=== PATIENT | female | born 1950 | race Caucasian/White ===

== ENCOUNTER 2022-05-07 17:52 | Emergency (ER) | payer OTHER, SELFPAY ==
[2022-05-07 18:16] VITALS: BP 178/77; PULSE 66; RESP 18; TEMP 36.3; O2SAT 95; BMI 26.3
--- NOTE | 2022-05-07 18:33 | ED.GENADULT ---
HPI - General Adult General Time Seen by Provider: 18:34 Date Seen: 05/07/22 Chief complaint: Chest Pain Stated complaint: Chest Pain Time Seen by Provider: 05/07/22 17:57 Source: patient and RN notes reviewed Mode of arrival: ambulatory Limitations: no limitations History of Present Illness HPI narrative: Patient is a 72-year-old female coming into the ER with concern of chest discomfort. Last night about 6:00 a.m. she was just moving about the house and developed severe substernal chest discomfort that radiated throughout the chest. She did not notice any palpitations, irregular heartbeat, no change with breathing. She can not really say that anything made it worse or better. She had eaten about an hour prior to this. There is no heartburn or reflux with it. It continued throughout the evening. She was able to fall asleep. This morning when she awoke she was left with just a little left lower chest discomfort. It does hurt to press on her left lower chest wall. On questioning of any radiation into the arm, she does endorse having had left arm pain this past week. She states it would hurt to lift her arm at all. It is better now. She has 2 [id number] twin grandchildren and just wonders if she was lifting them too much. Pain is not associated with her current symptoms in this left arm. No abdominal symptomatology such as nausea vomiting. She has had no current cough or cold symptoms, no fevers or chills. Baseline she takes 2 Tylenol twice a day for arthritis. She does use Symbicort for what she describes as a little piece of phlegm that will get caught in her throat if she does not use it. She states then should this start coughing and coughing. She states she had an episode where this was happening she was coughing so much that she went into the ER and they told her she had had a heart attack. This was when she was still living in [facility] [place] operated by [facility] and since then she has lived in [place]. She has moved here now to [place] with family. Further details or events not known. Activity has not increased her chest symptoms. She is really found nothing that has made the symptoms worse or better. Yesterday the pain was much more significant than it is today. She has never smoked but was exposed to secondhand smoke from her . No alcohol. Related Data Home Medications Medication Instructions Recorded Confirmed acetaminophen 325 mg tablet 650 mg PO BID PRN 05/07/22 05/07/22 alendronate 70 mg tablet mg PO 05/07/22 aspirin 81 mg chewable tablet 81 mg PO DAILY 05/07/22 05/07/22 atorvastatin 40 mg tablet 40 mg PO QHS 05/07/22 05/07/22 betamethasone dipropionate 0.05 % 1 applic topical DAILY PRN 05/07/22 05/07/22 lotion budesonide-formoterol HFA 160 inhalation 05/07/22 mcg-4.5 mcg/actuation aerosol inhaler (Symbicort) fluticasone propionate 50 1 spray intranasal DAILY PRN 05/07/22 05/07/22 mcg/actuation nasal spray,suspension (Flonase Allergy Relief) hydrocortisone 2.5 % rectal cream 1 ea SC PRN 05/07/22 with applicator levothyroxine 75 mcg tablet 75 mcg PO DAILY 05/07/22 05/07/22 losartan 25 mg tablet 25 mg PO DAILY 05/07/22 05/07/22 magnesium 500 mg tablet 500 mg PO DAILY 05/07/22 05/07/22 pantoprazole 40 mg tablet,delayed 40 mg PO DAILY 05/07/22 05/07/22 release sertraline 100 mg tablet 100 mg PO DAILY 05/07/22 05/07/22 Allergies Allergy/AdvReac Type Severity Reaction Status Date / Time No Known Drug Allergies Allergy Verified 05/07/22 18:12 Review of Systems Status of ROS: Reports: 10 or more systems reviewed and unremarkable except as noted in History and below PFSH PFS Social History Smoking Status: Unknown if ever smoked How often do you have a drink containing alcohol: monthly or less How often do you have six or more drinks on one occasion: Never AUDIT-C Alcohol total score: 1 Non-prescribed substance use: denies use Exam Const: Vital Signs, click to edit/add: Vital Signs - 24 hr 05/07/22 18:16 05/07/22 18:43 05/07/22 18:58 Temperature 97.4 F L Pulse Rate [Right Pulse Oximeter] 66 82 Respiratory Rate 18 17 Blood Pressure [Ri ght Upper Arm] 178/77 H 143/65 H Pulse Oximetry 95 96 96 Oxygen Delivery Me thod Room Air Documenting provider has reviewed patient's vital signs: yes Common normals: no apparent distress, average body habitus, oriented x3, no limitations, healthy appearing, alert and well nourished General appearance: cooperative, comfortable and well kempt HENMT: Common normals: normocephalic, head/scalp atraumatic, hearing grossly normal bilaterally, external ears normal, external nose normal, nasal mucous membranes and turbinates normal, moist oral mucous membranes, oropharynx normal, dentition normal and gingiva normal Head and scalp: normocephalic and atraumatic Nose: external nose normal and nasal mucous membranes and turbinates normal External ear: external ears normal Eye: Common normals: PERRL, EOMs intact bilaterally, conjunctivae normal and no scleral icterus Conjunctiva: conjunctiva(e) normal Pupil: PERRL Neck & C-Spine: Common normals: full ROM, no lymphadenopathy, supple, no meningeal signs, no JVD and thyroid normal Thyroid: thyroid normal Chest: Common normals: inspection of chest normal Other: Has palpable tenderness below the left breast over the anterolateral lower chest wall. There is no crepitus, no step-off. She has increased pain in the area when I palpate when she is attempting to sit up. This pain does not extend down into the abdominal muscles however. Resp: Common normals: normal respiratory effort, no retractions, no use of accessory muscles and clear to auscultation bilaterally Auscultation: clear to auscultation bilaterally Cardio: Common normals: no JVD, regular rate, regular rhythm, S1 normal heart sound, S2 normal heart sound, no gallops, no clicks, no murmurs and no rub Rate: regular rate Rhythm: regular rhythm Heart sounds: S1 normal and S2 normal GI: Common normals: Normal to inspection, nondistended, normoactive bowel sounds present, soft to palpation, non-tender, no hepatosplenomegaly and no masses Palpation: soft and no hepatosplenomegaly Extremity: Common normals: normal to inspection, full ROM, normal capillary refill, no joint enlargement, no clubbing, cyanosis or edema and no pedal edema Neuro: Common normals: oriented x3 Sensorium/orientation: alert Meningeal signs: no meningeal signs Speech: speech normal Gait (neuro): normal gait Psych: Appearance: well kempt Course Course Hospital Course: Patient will be observed on cardiac monitoring and pulse oximetry toe look for any hypoxia or arrhythmia. She will be getting labs, portable chest x-ray and baseline EKG. She certainly has palpable chest wall tenderness which would go with musculoskeletal issues. This certainly could be GI referred, cardiovascular such as [place], dissection/aneurysm, consideration for pulmonary etiologies as well but not as likely given her history. We will do point of care troponin. If that should come back elevated we will proceed with cardiac treatment. Will withhold aspirin at this time is I think other etiologies are just is likely or more likely rather than cardiac. The point of care troponin should not take long to obtain and again patient has had chest symptoms since last night. Vital Signs Vital signs: Initial Vital Signs Temperature 97.4 F L 05/07/22 18:16 Temperature Source Temporal Artery Scan 05/07/22 18:16 Pulse Rate 66 05/07/22 18:16 Respiratory Rate 18 05/07/22 18:16 Blood Pressure 178/77 H 05/07/22 18:16 Blood Pressure Mean 110 05/07/22 18:16 Blood Pressure Position Sitting 05/07/22 18:16 Pulse Oximetry 95 05/07/22 18:16 Oxygen Delivery Method 05/07/22 18:16 Vital Signs Temperature 97.4 F L 05/07/22 18:16 Pulse Rate 66 05/07/22 18:16 Respiratory Rate 18 05/07/22 18:16 Blood Pressure 178/77 H 05/07/22 18:16 Pulse Oximetry 95 05/07/22 18:16 Oxygen Delivery Method 05/07/22 18:16 Temperature 97.4 F L 05/07/22 18:16 Pulse Rate 82 05/07/22 18:58 Respiratory Rate 17 05/07/22 18:58 Blood Pressure 143/65 H 05/07/22 18:58 Pulse Oximetry 96 05/07/22 18:58 Oxygen Delivery Method 05/07/22 18:16 Medical Decision Making Lab Data Lab results reviewed: Yes I reviewed the patient's lab results Lab results narrative: Troponin and proBNP are normal. D-dimer is at 0.56 but well within the age limits for D-dimer. Patient is not hypoxic, not tachycardic and no shortness of breath. Have reviewed laboratory findings with her, nothing overtly concerning at this time. Labs: Lab Results 05/07/22 05/07/2222 Range/Units 19:03 19:03 19:03 WBC 7.93 (4.50-11.00) K/uL RBC 4.14 (4.00-5.20) m/uL Hgb 11.8 L (12.0-16.0) gm/dL Hct 36.3 (33.0-51.0) % MCV 88 (80-100) fL MCH 29 (26-34) pg MCHC 33 (32-36) gm/dL RDW Coeff of Jamison 13.6 (11.5-15.5) % Plt Count 288 (140-440) K/uL Neut % (Auto) 56.3 (42.0-72.0) % Lymph % (Auto) 32.5 (20-44) % Elliott % (Auto) 8.2 (0.0-11.0) % Eos % (Auto) 2.5 (0.0-7.0) % Baso % (Auto) 0.5 (0.0-3.0) % Neut # (Auto) 4.46 (1.7-7.0) K/uL Lymph # (Auto) 2.58 (0.90-2.90) K/uL Elliott # (Auto) 0.70 (0.00-0.90) K/UL Eos # (Auto) 0.20 (0.00-0.50) K/uL Baso # (Auto) 0.04 (0.00-0.30) K/uL Abs Immat Gran (auto) 0.00 (0.00-0.30) K/uL D-Dimer Quant (PE/DVT) 0.56 H (0.00-0.50) ug/ml Sodium 137 (135-149) mmol/L Potassium 3.8 (3.6-5.1) mmol/L Chloride 104 (96-114) mmol/L Carbon Dioxide 26 (20-32) mmol/L BUN 11 (7-30) mg/dL Creatinine 0.5 (0.5-1.5) mg/dL Estimated Creat Clear 48.03 Estimated GFR 100 ml/min Glucose 133 H (60-115) mg/dL Lactate (0.5-1.9) mmol/L Calcium 9.6 (8.4-10.6) mg/dL Total Bilirubin 0.3 (0.1-1.5) mg/dL AST 31 (12-35) U/L ALT 25 (4-35) U/L Alkaline Phosphatase 61 (40-150) U/L C-Reactive Protein < 0.5 L (0.5-1.0) mg/dL NT-Pro-B Natriuret Pep 88 (0-125) PG/mL Total Protein 6.9 (6.0-8.3) g/dL Albumin 4.3 (3.3-5.0) g/dL POC Troponin I (0.01-0.04) ng/ml 05/07/22 05/07/22 Range/Units 19:03 19:03 WBC (4.50-11.00) K/uL RBC (4.00-5.20) m/uL Hgb (12.0-16.0) gm/dL Hct (33.0-51.0) % MCV (80-100) fL MCH (26-34) pg MCHC (32-36) gm/dL RDW Coeff of Jamison (11.5-15.5) % Plt Count (140-440) K/uL Neut % (Auto) (42.0-72.0) % Lymph % (Auto) (20-44) % Elliott % (Auto) (0.0-11.0) % Eos % (Auto) (0.0-7.0) % Baso % (Auto) (0.0-3.0) % Neut # (Auto) (1.7-7.0) K/uL Lymph # (Auto) (0.90-2.90) K/uL Elliott # (Auto) (0.00-0.90) K/UL Eos # (Auto) (0.00-0.50) K/uL Baso # (Auto) (0.00-0.30) K/uL Abs Immat Gran (auto) (0.00-0.30) K/uL D-Dimer Quant (PE/DVT) (0.00-0.50) ug/ml Sodium (135-149) mmol/L Potassium (3.6-5.1) mmol/L Chloride (96-114) mmol/L Carbon Dioxide (20-32) mmol/L BUN (7-30) mg/dL Creatinine (0.5-1.5) mg/dL Estimated Creat Clear Estimated GFR ml/min Glucose (60-115) mg/dL Lactate 1.0 (0.5-1.9) mmol/L Calcium (8.4-10.6) mg/dL Total Bilirubin (0.1-1.5) mg/dL AST (12-35) U/L ALT (4-35) U/L Alkaline Phosphatase (40-150) U/L C-Reactive Protein (0.5-1.0) mg/dL NT-Pro-B Natriuret Pep (0-125) PG/mL Total Protein (6.0-8.3) g/dL Albumin (3.3-5.0) g/dL POC Troponin I 0.01 (0.01-0.04) ng/ml Imaging Data Chest x-ray: Attestation: I have reviewed the pertinent imaging results. My impression: On my preliminary read, I see no acute cardiopulmonary pathology. Radiologist's impression: Patient: HERNANDEZ TOWNSEND Facility:?[facility] Patient ID:?[id number] Site Patient ID:?[id number]. Site :?[id number] Study:?XRay Chest -05/07/2022 6:55:03 PM Ordering Physician:Mackenzie Marley Final Report: HISTORY: Left-sided chest pain. TECHNIQUE: One view of the chest. COMPARISON: No prior. FINDINGS: There is no acute lung infiltrate or pulmonary edema. No pneumothorax or pleural effusion. Heart size and pulmonary vasculature are within normal limits. There are degenerative changes of the spine. IMPRESSION: No acute disease. Dictated by Sandeep Decker MD @ 05/07/2022 7:10:34 PM Dictated by: Sandeep Decker MD @ 05/07/2022 19:10:39 (Electronic Signature) ECG Data Attestation: I personally reviewed and interpreted this ECG as follows: (Sinus rhythm, 71 beats per minute, normal EKG without ischemia. QT corrected 415 milliseconds) Prior ECG tracings: not available for review Critical Care Time Critical Care Time Critical Care Time: No Discharge Plan Discharge Clinical Impression: Left-sided chest wall pain Patient Disposition: Home, Self-Care Condition: Stable Instructions: Chest Pain (ED), Chest Wall Pain (ED) Additional Instructions: Please keep your scheduled follow-up for next week that you state is scheduled. You can try an extra dose of Tylenol during the middle the day to help with pain management. If you developed fever, cough, increased seen chest pain, new or concerning symptoms with this, please seek re-evaluation. Activity Level: Activity as Tolerated Prescriptions: No Action alendronate 70 mg tablet PO budesonide-formoterol [Symbicort] 160-4.5 mcg/actuation HFA aerosol inhaler INHALATION acetaminophen 325 mg tablet 650 mg PO BID PRN aspirin 81 mg tablet,chewable 81 mg PO DAILY atorvastatin 40 mg tablet 40 mg PO QHS betamethasone dipropionate 0.05 % lotion 1 applic topical DAILY PRN fluticasone propionate [Flonase Allergy Relief] 50 mcg/actuation spray,suspension 1 spray intranasal DAILY PRN Rx Instructions: administer into each nostril hydrocortisone 2.5 % cream with applicator 1 ea SC PRN levothyroxine 75 mcg tablet 75 mcg PO DAILY losartan 25 mg tablet 25 mg PO DAILY magnesium 500 mg tablet 500 mg PO DAILY pantoprazole 40 mg tablet,delayed release (DR/EC) 40 mg PO DAILY sertraline 100 mg tablet 100 mg PO DAILY Follow Up/Referrals: Provider,Not a Local [Primary Care Provider] - Stand Alone Forms: varinode Info Instructions
[2022-05-07 18:43] VITALS: O2SAT 96
--- NOTE | 2022-05-07 18:43 | CRLHL7_ITS ---
For Patients: As a result of the Cures Act, medical imaging exams and procedure reports are released immediately into your electronic medical record. You may view this report before your referring provider. If you have questions, please contact your health care provider. HISTORY: Left-sided chest pain. TECHNIQUE: One view of the chest. COMPARISON: No prior. FINDINGS: There is no acute lung infiltrate or pulmonary edema. No pneumothorax or pleural effusion. Heart size and pulmonary vasculature are within normal limits. There are degenerative changes of the spine. IMPRESSION: No acute disease. Dictated by Sandeep Decker MD @ 05/07/2022 7:10:34 PM Dictated by: Sandeep Decker MD @ 05/07/2022 19:10:39 (Electronically Signed)
[2022-05-07 18:58] VITALS: BP 143/65; PULSE 82; RESP 17; O2SAT 96
--- OUTSIDE RECORDS SUMMARY | 2022-05-07 18:59 | XMS_ITS | Clinical Summary ---
:1950 Author Organization [employer] [place] [address] Care Team Providers Name Role Phone Yocasta Reynolds MD Primary Care Provider Allergies No known active allergies Medications Medication Sig Dispensed Refills Start End Date Status Date alendronate Take 1 Tablet 0 Acti ve (FOSAMAX) 70 mg (70 mg) by 2 tablet mouth once a week in the morning. Take on empty stomach with full glass of water. Do not lie down for 1 hr. betamethasone,augmen Apply 0 Active igor dipropionate topically to 0.05% (DIPROLENE affected LOTION 0.05%) lotion area(s). atorvastatin Take 40 mg by 0 Act minna (LIPITOR) 40 mg mouth once 2 tablet daily. aspirin (ECOTRIN) 81 Take 81 mg by 0 Active mg enteric coated mouth once tablet daily. acetaminophen Take by 0 Active (TYLENOL EXTRA mouth. STRGTH) 500 mg tablet sertraline (ZOLOFT) Take 1 Tablet 0 Active 100 mg (100 mg) by 2 tabletIndications: mouth every Depression, morning. unspecified depression type, Anxiety Turmeric, Bulk, 95 % As directed. 0 Active powd 2 Magnesium Oxide 500 Take by 0 Active mg tab mouth. 2 losartan (COZAAR) 25 Take 1 Tablet 0 Active mg (25 mg) by 2 tabletIndications: mouth once Primary hypertension daily. levothyroxine Take 1 Tablet 0 Ac tive (SYNTHROID) 75 mcg (75 mcg) by 2 tabletIndications: mouth before Acquired breakfast. hypothyroidism hydrocortisone Apply 0 Activ e (ANUSOL-HC) 2.5 % topically to 2 rectal affected creamIndications: area(s) three Hemorrhoids, times daily. external fluticasone (50 mcg Inhale 2 16 g 0 Active per actuation) nasal Sprays to 2 solution both nostrils (FLONASE)Indications once daily. : Environmental allergies budesonide-formotero Inhale 2 30.6 g 0 Active L (Symbicort) Puffs by 2 160-4.5 mouth two mcg/actuation times daily. (160-4.5 mcg each actuation) inhalerIndications: Mild intermittent asthma without complication pantoprazole Take 1 Tablet 180 Tablet 3 Ac tive (PROTONIX) 40 mg (40 mg) by 2 delayed-release mouth two tabletIndications: times daily Gastroesophageal before meals. reflux disease, unspecified whether esophagitis present budesonide-formotero INHALE 2 0 04/21/20 Discontinued L (Symbicort) PUFFS BY 1 22 (Reord er 160-4.5 MOUTH TWICE (E-cance l not mcg/actuation DAILY. RINSE sen t)) (160-4.5 mcg each MOUTH AFTER actuation) inhaler USE budesonide-formotero Inhale 2 10.2 g 3 04/27/20 Discontinued L (Symbicort) Puffs by 2 22 (Reord er 160-4.5 mouth two (E-cancel not mcg/actuation times daily. sen t)) (160-4.5 mcg each actuation) inhalerIndications: Mild intermittent asthma without complication pantoprazole Take 1 Tablet 0 05/06/20 Dis continued (PROTONIX) 40 mg (40 mg) by 2 22 (R eorder delayed-release mouth two (E-c ancel not tabletIndications: times daily sent)) Gastroesophageal before meals. reflux disease, unspecified whether esophagitis present Active Problems Problem Noted Date Gastroesophageal reflux disease 06/02/2021 Anxiety 07/02/2019 Allergic rhinitis 06/25/2019 Constipation 06/21/2019 Acquired hypothyroidism 12/06/2018 Chronic obstructive pulmonary disease (COPD) 9 Overview: Formatting of this note might be differe nt from the original. Marked improvement with bronchodilators. Coughing spells have induced 2 episodes of takotsubo cardiomyopathy Age-related osteoporosis without current pathological fracture 09/18/2018 Mild persistent asthma without complication 09/12/2018 Mucopurulent chronic bronchitis 08/15/2018 Cardiomyopathy 08/07/2018 Overview: Formatting of this note might be differe nt from the original. Formatting of this note might be differe nt from the original. Two episodes 2015 and [facility] j[facility]. Second in [facility] 08/06/2018 normal coronaries EF 25%. Echo September 2018 returned to normal. Both episodes induced by severe coughing spell with h er chronic obstructive pulmonary disease no other cardiac symptoms. Last Assessment & Plan: Formatting of this note might be differe nt from the original. Patient manifests no symptoms. Diuretics are not necessary. LVEF is greater than 35%. We discussed symptoms to report to our office and a repeated echocardiogram would be done. Return visit with Primary [facility] in 2 years. Formatting of this note might be differe nt from the original. Two episodes takotsubo. Two episodes [address] [facility]. Second in [facility] 08/06/2018 normal coronaries EF 25%. Echo September 2018 returned to normal. Both episodes induced by sever e coughing spell with her chronic obstru ctive pulmonary disease no other cardiac symptoms. Last Assessment & Plan: Formatting of this note might be differe nt from the original. Depression 08/06/2018 Hyponatremia 08/06/2018 Primary hypertension 08/06/2018 Overview: Formatting of this note might be differe nt from the original. Last Assessment & Plan: Formatting of this note might be differe nt from the original. Target BP is 130/80. Blood pressure is a dequately controlled. Will plan to continue medical therapy. Encourage low sodium diet and exercise. Return visit with Primary [facility] in 2 years sooner if needed. . Last Assessment & Plan: Formatting of this note might be differe nt from the original. Target BP is 130/80. Blood pressure is a dequately controlled. Will plan to continue medical therapy. Encourage low sodium diet and exercise. Return visit with Primary [facility] in 2 years sooner if needed. . Encounters Date Type Specialty Care Team Description 05/07/2022 Nurse Triage Yocasta Reynolds MD Chest Pain 05/06/2022 Refill Yocasta Reynolds MD Refil l Request (Pantoprazole 40mg tablet, de layed release ) 04/28/2022 Refill Yocasta Reynolds MD Refil l Request (Symbicort) 04/27/2022 Refill Yocasta Reynolds MD Refil l Request (symbicort) 04/21/2022 Office Visit Yocasta Reynolds MD [facility] (72 y.o.); Immunization/In jection 04/21/2022 Travel from Last 3 Months Immunizations Name Administration Dates Next Due Influenza, High-dose Inactivated 07/18/2019, 07/17/2018 Influenza, Inactivated AIIV4 (Age 65+ Years) Preserv 022 Free Social History Tobacco Use Types Packs/Day Years Used Date Never Smoker Smokeless Tobacco: Never Used Alcohol Use Standard Drinks/Week Comments Not Currently 0 (1 standard drink = 0.6 oz pure alcoho l) Sex Assigned at Date Recorded Not on file COVID-19 Exposure Response Date Recorded In the last 10 days, have you been in contact with No / Unsu re 04/21/2022 10:44 AM CDT someone who was confirmed or suspected to have Coronavirus/COVID-19? Obstetrics History Last Filed Vital Signs Vital Sign Reading Time Taken Comments Blood Pressure 140/84 04/21/2022 12:16 PM CDT Pulse 68 04/21/2022 12:16 PM CDT Temperature 36.7 ??C (98.1 ??F) 04/21/2022 11:00 AM CDT Respiratory Rate - - Oxygen Saturation 97% 04/21/2022 11:00 AM CDT Inhaled Oxygen Concentration - - Weight 60 kg (132 lb 3.2 oz) 04/21/2022 11:00 AM CDT Height 148 cm (4' 10.27) 04/21/2022 11:00 AM CDT Body Mass Index 27.38 04/21/2022 11:00 AM CDT Plan of Treatment Upcoming Encounters Date Type Specialty Care Team Description 05/21/2022 Office Visit Yocasta Reynolds MD [facility] [place] 5 [id number] (Wo rk) 05/25/2022 [place] [address] [address] [facility] [phone] (Wo rk) Health Maintenance Due Date Last Done Comments COVID-19 vaccine series (#1) 1950 Pneumococcal series for age 65+ (1 - 1957 PCV) Tdap 1962 Depression screening for age 12+ 1963 Hepatitis C screening for age 18-79 1969 Tetanus booster 1971 Colonoscopy through age 75 02/29/1996 Lipids for age 45-75 02/29/1996 Mammogram for age 45-75 02/29/1996 Zoster (shingles) series for age 50+ 2001 (1 of 2) DEXA/DXA scan for age 65+ 02/29/2016 Medicare Wellness for age 65+ 02/29/2016 BMI (ht and wt on same day) for age 0904/21/2023 04/21/2022 18+ Influenza for age 65+ Completed 04/21/2022, 07/18/2019, 07/17/2018 Results Not on filefrom Last 3 Months Insurance Payer Benefit Plan / Subscriber ID Effective Dates Phone Addre ss Type Group [employer] G[employer] MR [employer] CHOICE [id number] 2019-Present [address] [address] [place] [address] Care Teams Trip Follower Relationship Specialty Start Date End Date Yocasta Reynolds MD PCP - General Family Practice 04/20/[address] [place] [address]
[2022-05-07 19:00] VITALS: BP 143/65; PULSE 63; RESP 19; O2SAT 97
[2022-05-07 19:17] LABS: Basophils Absolute Auto 0.04 K/uL (0.00-0.30); Basophils Percent Auto 0.5 % (0.0-3.0); Eosinophils Percent Auto 2.5 % (0.0-7.0); Hematocrit 36.3 % (33.0-51.0); Hemoglobin* 11.8 gm/dL (12.0-16.0); Lymphocytes Absolute Auto 2.58 K/uL (0.90-2.90); Lymphocytes Percent Auto 32.5 % (20-44); Mean Corpuscular HGB Conc 33 gm/dL (32-36); Mean Corpuscular Hemoglobin 29 pg (26-34); Mean Corpuscular Volume 88 fL (80-100); Monocytes Percent Auto 8.2 % (0.0-11.0); Neutrophils Absolute Auto 4.46 K/uL (1.7-7.0); Neutrophils Percent Auto 56.3 % (42.0-72.0); Platelet Count* 288 K/uL (140-440); RDW Coefficient of Variation % 13.6 % (11.5-15.5); Red Blood Count 4.14 m/uL (4.00-5.20); Troponin, Point-of-Care* 0.01 ng/ml (0.01-0.04); White Blood Count* 7.93 K/uL (4.50-11.00)
[2022-05-07 19:22] LABS: Slide Review Reflex No
[2022-05-07 19:38] LABS: Albumin* 4.3 g/dL (3.3-5.0); Chloride* 104 mmol/L (96-114); Sodium* 137 mmol/L (135-149)
[2022-05-07 19:39] LABS: Potassium* 3.8 mmol/L (3.6-5.1)
[2022-05-07 19:41] LABS: Alanine Aminotransferase* 25 U/L (4-35); Alkaline Phosphatase* 61 U/L (40-150); Aspartate Amino Transferase* 31 U/L (12-35); Bilirubin Total* 0.3 mg/dL (0.1-1.5); Blood Urea Nitrogen* 11 mg/dL (7-30); Carbon Dioxide* 26 mmol/L (20-32); Creatinine* 0.5 mg/dL (0.5-1.5); Est. Creatinine Clearance* 48.03; Estimated Glomerular Filt Rate 100 ml/min; Glucose* 133 mg/dL (60-115); Total Protein* 6.9 g/dL (6.0-8.3)
[2022-05-07 19:42] LABS: Calcium* 9.6 mg/dL (8.4-10.6); D Dimer Quantitative* 0.56 ug/ml (0.00-0.50)
[2022-05-07 19:44] LABS: C Reactive Protein* < 0.5 mg/dL (0.5-1.0)
[2022-05-07 19:50] LABS: NT Pro B Type NatriureticPept* 88 PG/mL (0-125)
[2022-05-07 20:00] VITALS: BP 144/69; PULSE 59; RESP 13; O2SAT 95
== END 2022-05-07 20:24 | disposition home or self-care (01) ==
PROVIDERS: Emergency Provider Family Medicine
DX: R07.9 Chest pain, unspecified (principal)
CPT/HCPCS: 36415; 71045; 80053; 83605; 83880; 84484; 85025; 85379; 86140; 93005; 94761; 99284; 99285

== ENCOUNTER 2023-02-01 14:30 | Outpatient (RCR) | payer OTHER, SELFPAY ==
--- NOTE | 2022-12-14 11:29 | PT.OPEX ---
PT [place] [facility] Eval PT [facility] Out[facility] Eval Start: 12/14/22 09:47 Freq: Status: Active Protocol: Document 12/14/22 10:27 [facility] (Rec: 12/14/22 10:41 [facility] [id number]) E-signed By Marcus Casanova, PT Physical Therapy Outpatient Evaluation Insurance Information Insurance Name Medicare B Medical Diagnosis Unilateral primary OA of left knee M17.12 Presence of left artificial knee joint (after 12/27/22) Z96 .652 Treating Diagnosis Left knee pain M25.562 Impaired gait R26.[address] Siddhartha Arreola Subjective Subjective Pt. reports that she has left knee pain from OA. It limits her ambulation ability and any activities up on her feet. PLOF: walking for exercise outside on the trail around a [place] behind her home, 1/2 to 1 mile, without AD and painfree . She also has two three year old grandkids that she wants to be active with. Pt lives in the [id number] apt of her son and daughter in law's home . She will have to navigate 14 step (7 [id number] steps ) to get to her living level. PMH: depression, arthritis Pain Comments 12/15 left knee Date of Last Physician Visit 12/07/22 Date of Surgery (If applicable) 12/27/22 Current Work Status Retired Precautions Weight Bearing Status Weight Bear as Tolerated Therapy Limitations/Systems Review Not Limited Objective Other/Pertinent Objective Left knee ROM: WNL Strength: L LE: 5/5 except hip flexion 4/5 + Antalgic gait, moderate left limp + genu varus, left moreso than right Performs all transfers I Functional Test Performed & Score Ambulates short community distances (~500 ft) without AD , antalgic limp left Assessment Assessment/Impression 72 year old female with advanced OA left knee that is painful enough to be significantly limiting her daily activities and ambulation ability. Patient scheduled for L TKA 12/27/[address] Arreola. She was educated in the pre/post-op rehab process, fall prevention and HEP. Patient demo and verbalized good understanding of the information shared. She will benefit from skilled outpatient PT upon d/c from hospital. She has good family support and anticipates d/c home after surgery. Primary Functional Limitations ambulation, sit to stand tfr, stairs Plan of Care Rehabilitation Potential Excellent Rehabilitation Potential Comments generally active, in good health Physical Therapy Goals Pre-op goal: 1) Pt to demo I with pre-op HEP for left knee ROM/strength as well as what to expect from the post-op recovery process. GOAL MET Post-op goals, TBD Coordination/Communication With Referral Source Treatment Plan/Direct Interventions Gait Training,Manual Therapy, Neuromuscular Re-ed,Self-Care/ Home Management,Therapeutic Exercises Direct Interventions Clarification pre-op TKA program Comments Frequency/Duration one pre op visit. Anticipate 1-2x/week for 4-8 weeks post-op, per treating PT 's discretion. Patient Will Be Discharged From Therapy Completion of LTG(s), Independent w/HEP Evaluation Billing Untimed Code Treatment Minutes 20 Complexity Low Certification Information Initial Certification Date 12/14/22 Ending Certification Date 03/08/23 Provider Signature Shows Agreement With POC & Medical Necessity Physician Signature & Date Requested Please Sign/Date Here Physician Comment/Change : Physician NPI Number #
== END 2023-03-24 14:32 | disposition home or self-care (01) ==
PROVIDERS: Visit Provider Orthopaedic Surgery Sports Medicine
DX: M17.12 Unilateral primary osteoarthritis, left knee (principal); Z96.652 Presence of left artificial knee joint; M25.562 Pain in left knee; R26.2 Difficulty in walking, not elsewhere classified; Z51.89 Encounter for other specified aftercare
CPT/HCPCS: 97110; 97140; 97161; 97164; 97530

== ENCOUNTER 2023-06-02 09:45 | Outpatient (RCR) | payer OTHER, SELFPAY | END 2023-08-11 15:09 | disposition home or self-care (01) | PROVIDERS: PCP Family Medicine; Visit Provider Family Medicine | DX: M25.511 Pain in right shoulder (principal); M62.81 Muscle weakness (generalized); M79.601 Pain in right arm; Z51.89 Encounter for other specified aftercare | CPT/HCPCS: 97110; 97161; 97530 ==

== ENCOUNTER 2023-08-03 12:16 | Outpatient (CLI) | payer OTHER, SELFPAY | END 2023-08-03 12:17 | disposition home or self-care (01) | LOC: CT 12:17 | PROVIDERS: PCP Family Medicine; Visit Provider Orthopaedic Surgery Sports Medicine | DX: M19.011 Primary osteoarthritis, right shoulder (principal); Z01.818 Encounter for other preprocedural examination | CPT/HCPCS: 73200 ==

== ENCOUNTER 2023-09-07 06:08 | Day surgery (SDC) | payer OTHER, SELFPAY ==
[2023-09-07] VITALS (23 sets, daily range): BP systolic 104–140; BP diastolic 60–89; PULSE 53–82; RESP 12–22; TEMP 35.9–36.8; O2SAT 89–98; BMI 27.6
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
[2023-09-07] MEDS: LACTATED RINGERS 1000 ML 1,000 ML 100 ML IV ×2 (06:30→08:53)
[2023-09-07] MEDS: ACETAMINOPHEN 500 MG TABLET 1000 MG PO ×4 (06:40→22:42)
[2023-09-07] MEDS: OXYCODONE (CR) 10 MG TAB.ER.12H PO (06:40)
--- NOTE | 2023-09-07 07:01 | W.PM.H&PU ---
History & Physical Update History & Physical Update H&P Reviewed and patient assessed: No changes noted
--- NOTE | 2023-09-07 07:03 | CRLHL7_ITS ---
For Patients: As a result of the Cures Act, medical imaging exams and procedure reports are released immediately into your electronic medical record. You may view this report before your referring provider. If you have questions, please contact your health care provider. Indication: post op right reverse total shoulder arthroplasty Technique: Two views right shoulder Findings/Impression: Hardware from a right reverse total shoulder arthroplasty is in satisfactory position. Bone alignment is normal. No sign of acute fracture. Postop changes are within normal limits. Dictated by David Hogan MD @ 09/07/2023 9:59:19 AM (Electronically Signed)
[2023-09-07] MEDS: MIDAZOLAM HCL 1 MG/ML inj IVP (07:11)
[2023-09-07] MEDS: fentaNYL 100 MCG/2 ML inj IVP (07:11)
--- NOTE | 2023-09-07 07:13 | SUR.PREOP ---
TIME?OUT:?5910 PT/Mariangel Mills RN/Dr. Nando MDA?VERIFICATION?OF?SURGICAL?SITE right shoulder,?PROCEDURE,?AND?CONSENT OBTAINED?PRIOR?TO?INVASIVE?PROCEDURE.
[2023-09-07] MEDS: CEFAZOLIN 2 GM in 0.9 % SODIUM CHLORIDE Mini-bag 100 ML IVPB (07:40)
--- NOTE | 2023-09-07 07:41 | W.ANESCHARGE ---
Anesthesia Charges Start Date/Time Anesthesia Start Date: 09/07/23 Anesthesia Start Time: 07:22 Stop Date/Time Anesthesia Stop Date: 09/07/23 Anesthesia Stop Time: 09:34 Summary Extremes of Age - Over 70 or under 1: MDA
--- NOTE | 2023-09-07 07:42 | P.NB_ITS ---
Nerve Block Nerve Block Time Seen by Provider: 07:13 Date Seen: 09/07/23 Type of block requested by surgeon for post-operative analgesia: supraclavicular Side: right Time out performed: Yes Verification of patient name: Yes Verification of date of : Yes Site marking: site marked Name of person performing procedure: Nando Continuous monitoring Was continuous monitoring of O2 sat, B/P, alarm security or surveillance monitor, recorded every 15 minutes?: Yes Procedure Checklist: sterile prep, needles and gloves Ultrasound guided. Images saved: Yes Medications given in 5ml increments after negative aspiration: Ropivicaine %: 0.5 mL: 15 Needle gauge: 22 Decadron (mg): 10 Precedex (mcg): 25 Patient tolerated procedure well: Yes Block Charges Block Charge (with Pro Fee): Brachial Plexus Use of Ultrasound Machine for Block: Yes- US Guidance/pain block
[2023-09-07] MEDS: TRANEXAMIC ACID 100 MG/ML INJ 1000 MG IV (07:44)
--- NOTE | 2023-09-07 09:03 | P.ORPRC_ITS ---
Procedure Note Date of procedure: 09/07/23 Procedure: PREOPERATIVE DIAGNOSIS: 1. Right shoulder cuff tear arthropathy with significant rotator cuff atrophy 2. Right long head of the biceps tendinopathy and tenosynovitis POSTOPERATIVE DIAGNOSIS: 1. Right shoulder cuff tear arthropathy with significant rotator cuff atrophy 2. Right long head of the biceps tendinopathy and tenosynovitis PROCEDURE: 1. Right reverse shoulder arthroplasty. 2. Right long head of biceps open tenodesis SURGEON: Siddhartha Arreola MD. [employer] CENTRIFUGAL OPERATOR: Tha Ochoa PA-C; Naty Cruz PA-C - Of note, a skilled assistant professor surgical technology was critical for this case to aid in patient positioning, tissue retraction, limb manipulation/positioning, retraction for glenoid exposure, which was challenging, awareness and protection of critical structures, and closure. ANESTHESIA: General plus supraclavicular block EBL: 100 ml IMPLANTS: DJ0 surgical Altivate humeral stem size 6 small shell, short with P2 porous coating vitamin E neutral poly small socket insert RSP glenoid base plate P2 porous coating with pre perimeter locking screws 32 (-4) glenosphere with retaining screw COMPLICATIONS: None evident INDICATIONS: The patient is a pleasant 73-year-old female who has experienced severe right shoulder pain and difficulty with use. Workup included imaging which revealed severe osteoarthrosis along with concern for rotator cuff quality. Physical exam was consistent with associated pain. Given the deformi ty, the dysfunction, and the pain, and failure of nonoperative management, recommendation was made for surgery. DESCRIPTION OF PROCEDURE: Following a thorough discussion of risks, benefits, and alternatives, consent was obtained and the left shoulder was marked. The patient was brought to the operating room and placed supine on the operating table. Induction of anesthesia was undertaken. 1 g IV Ancef and 1 g tranexamic acid was administered within 1 hr of incision preoperatively. Appropriate time-out was performed identifying proper patient, site, and procedure. The operative extremity was prepped and draped in the appropriate sterile fashion using ChloraPrep after the patient was positioned in the lazy beach chair position with head in neutral alignment and all bony prominences we ll padded. A longitudinal incision was made for deltopectoral approach. Deltoid was retracted laterally. Cephalic vein was identified and retracted laterally as well. Vein was spared/protected throughout the case. The clavipectoral fascia was identified and divided longitudinally staying lateral to the conjoined tendon / coracoid. The conjoined tendon was protected with a blunt Hohmann. The long head of the biceps tendon was identified and the bicipital sheath released. The upper 1/4 of the pectoralis major was also released from its insertion. The long head of the biceps was tenodesed to the pectoralis major tendon. The remaining proximal tendon tissue was excised. The rotator cuff was inspected and found to have good integrity with the subscapularis but fair integrity with a supraspinatus], and a decision for a reverse shoulder arthroplasty was confirmed. The long head of biceps, of note, was significant flattened, thickened, with abundant tenosynovitis. A subscapularis cuff of tissue was left via tenotomy for later repair with the remaining subscapularis released in a subperiosteal fashion with the Bovie. This was tagged for later repair. The 3 sisters were cauterized. The upper subscapularis was released from the capsule with a curved Steen scissors towards the glenoid. The inferior subscapularis was divided from the capsular tissue on its caudal surface with particular caution for the axillary nerve. This was palpated anterior to the subscapularis both prior to and near the finish of the case. Inferior humeral head osteophytes were excised with caution taken throughout the case with regards to the axillary nerve. The humerus was dislocated, and humeral head cut completed. Then a protector plate was applied. We turned our attention to the glenoid. The humerus was retracted posteriorly. The subscap was protected anteriorly and the labrum/long head biceps origin was excised circumferentially. The capsule was released along the anterior and inferior portions of the glenoid cautiously with a Murry elevator being careful not to penetrate deep. The glenoid had appropriate exposure, and was prepared with the cannulated system with a target of approximately 5-10? of inferior tilt and neutral anteversion (patient had 9 ? of retroversion initially). [Utilizing the match Point preoperative planning system it helped for the guide pin placement. The guide pin was placed and the tap was placed followed by the glenoid reaming. The real base plate was opened, and inserted, and excellent compression/purchase was achieved with the central screw. Peripheral screws were then drilled, measured, and placed. The glenosphere was then placed consistent with the preoperative plan utilizing the above noted glenosphere. After securing the glenosphere with the locking, torque limited screw, attention was turned back to the humerus. A canal finder was placed followed by various reamers by hand. The real humeral stem was then opened and inserted with excellent metaphyseal fit and stability. Trial poly was placed and the shoulder reduced. Excellent reduction and stability achieved with appropriate tension on the conjoined tendon. At this stage, trial implants were removed, and the real implants inserted and the shoulder reduced. A 3 minute Betadine soak was performed followed by a thorough irrigation with normal saline. Subscapularis was repaired with #1 PDS to the cuff of tissue on the lesser tuberosity. Excellent reapproximation of tissue achieved. Hemostasis was found to be appropriate. The deltopectoral interval was reapproximated with 0 Vicryl, subcutaneous and subcuticular closure was then performed with number 2-0 Vicryl and 4-0 Monocryl, respectively. A skilled assistant professor surgical technology was critical for this case to aid in patient positioning, tissue retraction, limb manipulation/positioning, retraction for glenoid exposure, which was challenging, awareness and protection of critical structures, and closure. PLAN: 1. Sling at all times for the operative upper extremity. 2. AROM of elbow, forearm, wrist, and digits as tolerated. 3. PT/OT consults for education and assistance. 4. Social consult for discharge planning. 5. 23 hr perioperative antibiotics. 6. Early ambulation, and SCDs for DVT prophylaxis. 7. Admit to the hospital for the above 8. Analgesics p.r.n.
--- NOTE | 2023-09-07 09:31 | W.ANESCHARGE ---
Anesthesia Charges Start Date/Time Anesthesia Start Date: 09/07/23 Anesthesia Start Time: 07:22 Stop Date/Time Anesthesia Stop Date: 09/07/23 Anesthesia Stop Time: 09:34 Summary Extremes of Age - Over 70 or under 1: INSPECTOR INSULATION
[2023-09-07] MEDS: LACTATED RINGERS 1000 ML 1,000 ML 75 ML IV (11:04)
--- NOTE | 2023-09-07 11:11 | PM.IMCN1 ---
Date of Consult Patient: [facility] Patient Consult date: 09/07/23 Requesting Physician: Orthopedics Primary Care Provider: Yocasta Reynolds MD Consult Narrative Reason for consult: MEDICAL MANAGEMENT Narrative: Lisbeth Weston is a 73 year old female past medical history significant for COPD, hypothyroidism, GERD, hyponatremia, hypertension, osteoarthritis is POD#0 s/p right reverse shoulder. Postoperatively the, patient reports 0 pain. Still has numbness in the shoulder. Admits her neck feels a little stiff following the procedure otherwise. Denies nausea, tolerating sips of ice water. There have been no perioperative complications or nursing concerns reported. Estimated total blood loss documented as 100 ml. Updated and reviewed the active medical problems, past medical history, past surgical history, social history, allergies and medications in our electronic EMR. Review of Systems Narrative: REVIEW OF SYSTEMS: Complete review of systems performed and negative unless otherwise stated in HPI or below. 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) Mucopurulent chronic bronchitis ?J41.1 - Mucopurulent chronic bronchitis (ICD-10) Mild persistent allergic asthma without complication ?J45.30 - Mild persistent asthma, uncomplicated (ICD-10) Hyponatremia ?E87.1 - Hypo-osmolality and hyponatremia (ICD-10) Chronic obstruct airways disease ?J44.9 - Chronic obstructive pulmonary disease, unspecified (ICD-10) Constipation ?K59.00 - Constipation, unspecified (ICD-10) Anxiety ?F41.9 - Anxiety disorder, unspecified (ICD-10) Allergic rhinitis ?J30.9 - Allergic rhinitis, unspecified (ICD-10) Hypothyroidism ?E03.9 - Hypothyroidism, unspecified (ICD-10) Osteoarthritis of left knee ?M17.12 - Unilateral primary osteoarthritis, left knee (ICD-10) Hyperlipidemia ?E78.5 - Hyperlipidemia, unspecified (ICD-10) Hypertension ?I10 - Essential (primary) hypertension (ICD-10) GERD (gastroesophageal reflux disease) ?K21.9 - Gastro-esophageal reflux disease without esophagitis (ICD-10) Arthritis ?M19.90 - Unspecified osteoarthritis, unspecified site (ICD-10) Thyroid condition ?E07.9 - Disorder of thyroid, unspecified (ICD-10) Surgical History 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) ?Z96.652 - Presence of left artificial knee joint (ICD-10) Hx of tonsillectomy ?Z90.89 - Acquired absence of other organs (ICD-10) Family History Mother Alzheimers disease Social History What is your current living situation?: I presently have a place to live In the past 12 months, utilities in danger of being shut off: no In past 12 months, lack of transportation kept you from medical appts, meetings, work, or getting things needed for daily living: no In the past 12 mos, have been you worried that your food would run out before you had money to buy more?: never true In the past 12 mos, the food you bought just didn't last and you didn't have money to buy more?: never true Smoking Status: Never smoker Do you use any of these nicotine containing products: None How often do you have a drink containing alcohol: never How many standard drinks containing alcohol do you have on a typical day: 1 or 2 How often do you have six or more drinks on one occasion: Never AUDIT-C Alcohol total score: 0 Non-prescribed substance use: denies use Caffeine: Yes (coffee 2 cups/day) How often does anyone, including family, friends and others, physically hurt you: never How often does anyone, including family, friends and others, insult or talk down to you: never How often does anyone, including family, friends and others, threaten you with harm: never How often does anyone, including family, friends and others, scream or curse at you: never service: No Meds Home Medications and Allergies Home Medications Medication Instructions Recorded Confirmed Type alendronate 70 mg tablet 70 mg PO Q7D 05/07/22 09/07/23 History atorvastatin 40 mg tablet 40 mg PO HS 05/07/22 09/07/23 History budesonide-formoterol HFA 160 2 puff inhalation BID 05/07/22 09/07/23 History mcg-4.5 mcg/actuation aerosol inhaler (Symbicort) fluticasone propionate 50 1 spray intranasal DAILY PRN 05/07/22 09/07/23 History mcg/actuation nasal spray,suspension (Flonase Allergy Relief) pantoprazole 40 mg tablet,delayed 40 mg PO BID 05/07/22 09/07/23 History release docusate sodium 100 mg capsule 100 mg PO BID PRN 12/26/22 09/06/23 History losartan 100 1 tab PO DAILY 12/26/22 09/07/23 History mg-hydrochlorothiazide 25 mg tablet sertraline 50 mg tablet 50 mg PO DAILY 12/26/22 09/07/23 History levothyroxine 75 mcg tablet 75 mcg PO DAILY 07/12/23 09/07/23 History Allergies Allergy/AdvReac Type Severity Reaction Status Date / Time No Known Drug Allergies Allergy Verified 09/07/23 06:14 Exam Narrative: Exam Narrative: PHYSICAL EXAM General: Pleasant, conversant, NAD HEENT: Normocephalic, atraumatic, sclera white, EOMI, oral mucosa moist Cardiovascular: RRR, S1S2. No pitting edema Pulmonary: CTA bilaterally without rhonchi, rales, expiratory wheezes. No dyspnea Abdominal: Soft, nondistended, NTTP Neurological: Alert, answering questions appropriately, cranial nerves intact, no focal findings Extremities: No gross joint deformity or swelling. Postoperative dressing in place, dry. Neurovascularly intact Skin: Warm, dry. Const: Vital Signs, click to edit/add: Vital Signs - 24 hr 09/07/23 06:50 09/07/23 07:15 09/07/23 09:29 Temperature 97.9 F 97.8 F Pulse Rate 58 L 53 L 82 Respiratory Rate 16 14 12 Blood Pressure 140/73 H 121/62 124/69 Pulse Oximetry 98 98 93 Oxygen Delivery Me thod Room Air Nasal Cannula Room Air Oxygen Flow Rate 2 09/07/23 09:34 09/07/23 09:39 09/07/23 09:44 Temperature Pulse Rate 81 73 70 Respiratory Rate 12 14 16 Blood Pressure 121/60 112/73 123/76 Pulse Oximetry 93 95 93 Oxygen Delivery Me thod Room Air Room Air Room Air Oxygen Flow Rate 09/07/23 09:50 09/07/23 09:56 09/07/23 10:00 Temperature Pulse Rate 68 64 69 Respiratory Rate 14 14 14 Blood Pressure 121/67 121/68 122/75 Pulse Oximetry 93 93 92 Oxygen Delivery Me thod Room Air Room Air Room Air Oxygen Flow Rate Assessment and Plan Assessment and plan (1) Rotator cuff arthropathy of right shoulder: Problem comment: -POD#0 s/p right reverse shoulder arthroplasty -perioperative management including pain management and anticoagulation per Orthopedic surgery -encourage postoperative pulmonary hygiene, incentive spirometery -PT OT consults -plan to discharge home with children tomorrow Status: Acute (2) Chronic obstruct airways disease: Problem comment: -maintain O2 saturations > 88%, encourage incentive spirometry, pulmonary hygiene, Symbicort Status: Acute (3) Hyperlipidemia: Problem comment: -resume statin tomorrow Status: Acute (4) Hypothyroidism: Problem comment: -resume levothyroxine tomorrow Status: Acute (5) Hypertension: Problem comment: -postoperative pressures appropriate, resume home medications tomorrow Status: Acute Plan May resume home medications tomorrow. Hospital medicine team will sign off. Please contact our service with any questions or concerns.
[2023-09-07] MEDS: CEFAZOLIN 1 GM in 0.9 % SODIUM CHLORIDE Mini-bag 100 ML IVPB ×2 (12:58→21:04)
--- NOTE | 2023-09-07 14:44 | PC.NURSE ---
End of shift [id number]: Pt arrived to the floor at 1015. Pt is A&O, afebrile and VSS. She required minimal O2 therapy during the immediate recovery for O2 dipping down to 88% on RA. It was noted pt does have COPD so parameters okay to be between 88-92% and she has been returned to RA and maintaining > 88%. Pt denies having any pain. Right hand remains numb and no movement in her fingers. [place] in color, warm and radial pulse intact. Right shoulder dressing C/D/I and ice pack in place. PIV in left hand infusing LR @ 75 mL/hr. Pt tolerating water but has not had interest in any snacks to advance diet. Pt has had x1 void since arrival, clear yellow in color. Post-op 6 hours ends at 1615. Plans to discharge home with her children tomorrow, 09/08. ?
--- NOTE | 2023-09-07 19:41 | PC.NURSE ---
Pt is denying pain and still has complete numbness of right arm to fingers. Warm fingers and excellent cap refill of each right fingers. Up with SBA to BR. Pt will return home tomorrow where she lives in the [facility] of adult son's family home. Son and Trinidad BYRNES will help pt with cares and recovery.
[2023-09-07] MEDS: ATORVASTATIN CALCIUM 40 MG TABLET PO (21:02)
[2023-09-07] MEDS: SENNOSIDES 1 TAB TABLET 2 TAB PO (21:03)
[2023-09-08] MEDS: LACTATED RINGERS 1000 ML 1,000 ML 75 ML IV (00:21)
[2023-09-08] MEDS: OXYCODONE 5 MG TABLET PO ×2 (01:22→10:39)
[2023-09-08 03:00] VITALS: BP 133/63; PULSE 69; RESP 16; TEMP 36.4; O2SAT 96
[2023-09-08] MEDS: CEFAZOLIN 1 GM in 0.9 % SODIUM CHLORIDE Mini-bag 100 ML IVPB (04:48)
[2023-09-08] MEDS: LEVOTHYROXINE 75 MCG TABLET PO (06:20)
[2023-09-08 06:26] LABS: Hematocrit 34.6 % (33.0-51.0); Hemoglobin* 11.2 gm/dL (12.0-16.0); Mean Corpuscular HGB Conc 32 gm/dL (32-36); Mean Corpuscular Hemoglobin 27 pg (26-34); Mean Corpuscular Volume 83 fL (80-100); Platelet Count* 291 K/uL (140-440); Red Blood Count 4.16 m/uL (4.00-5.20); Slide Review Reflex No; White Blood Count* 11.02 K/uL (4.50-11.00)
--- NOTE | 2023-09-08 06:39 | PC.NURSE ---
Patient pleasant, alert and oriented. Ambulated with stand by assist. Reported able to move fingers and getting feeling back in right shoulder/arm at approximately 0115. Patient requested PRN pain medication at that time. Dark red and purple bruising below incision dressing on right arm/shoulder. Area outlined with pen. PM Charge nurse Sidra updated and assessed area. IV saline locked at 0300. Patient denied any further pain. ?
[2023-09-08] MEDS: ACETAMINOPHEN 500 MG TABLET 1000 MG PO (06:45)
[2023-09-08 06:46] LABS: Potassium* 3.2 mmol/L (3.6-5.1); Sodium* 132 mmol/L (135-149)
[2023-09-08] MEDS: OMEPRAZOLE 20 MG CAPSULE DR 40 MG PO (06:46)
[2023-09-08 06:49] LABS: Blood Urea Nitrogen* 11 mg/dL (7-30); Creatinine* 0.5 mg/dL (0.5-1.5); Est. Creatinine Clearance* 48.17; Estimated Glomerular Filt Rate 100 ml/min
[2023-09-08 07:00] VITALS: BP 129/67; PULSE 68; RESP 16; TEMP 36.8; O2SAT 95
[2023-09-08] MEDS: SENNOSIDES 1 TAB TABLET 2 TAB PO (08:47)
[2023-09-08] MEDS: hydroCHLOROthiazide 25 MG TABLET PO (08:47)
[2023-09-08] MEDS: LOSARTAN POTASSIUM 50 MG TABLET 100 MG PO (08:47)
[2023-09-08] MEDS: SERTRALINE 50 MG TABLET PO (08:47)
[2023-09-08 11:00] VITALS: BP 146/77; PULSE 66; RESP 16; TEMP 36.8; O2SAT 95
--- NOTE | 2023-09-08 11:47 | PM.ORPN ---
Subjective Subjective Date Seen: 09/08/23 Principal diagnosis: Status postop day 1 right reverse total shoulder arthroplasty Interval history: Patient reports doing well. No acute events over night. Nursing staff reports bruise to her right arm. Pain managed with scheduled and PRN medications, ice. DVT prophylaxis: bilateral knee high Doug stockings, SCDs, walking. Denies fevers, chills, aches, N/V, CP, SOB/EVANS, or lightheadedness. Ortho Exam Narrative Exam Narrative: -Patient appears comfortable in recliner; no apparent acute distress -Alert and oriented times 3 -Operative shoulder swollen; soft, supple tissues; no obvious erythema. -notable ecchymosis to the distal aspect of the bandage, area measuring 10 x 7 cm in greatest dimension; soft, supple, mildly tender to palpation, no obvious abscess -Warmth appropriate -Surgical dressing clean, dry, intact; no obvious drainage, no erythematous streaking peripheral to the bandage -Bilateral calves soft and supple; no significant swelling, edema, tenderness, erythema, discoloration, warmth, or palpable cords -2+ radial pulse, intact dermatomes and myotomes distally (5/5 strength) Const Vital Signs, click to edit/add: Vital Signs - 24 hr 09/07/23 12:03 09/07/23 12:15 09/07/23 13:10 Temperature 96.7 F L 97.6 F 97.5 F L Pulse Rate 65 Pulse Rate [Pulse Oximeter] 78 80 Respiratory Rate 16 16 16 Blood Pressure [Left Arm] 104/66 128/67 133/69 Pulse Oximetry 94 93 Oxygen Delivery Method Room Air Room Air Room Air 09/07/23 14:14 09/07/23 15:00 09/07/23 16:00 Temperature 97.5 F L 97.5 F L 97.6 F Pulse Rate Pulse Rate [Pulse Oximeter] 80 69 76 Respiratory Rate 16 18 18 Blood Pressure [Left Arm] 125/65 129/75 130/89 Pulse Oximetry 93 94 94 Oxygen Delivery Method Room Air Room Air Room Air 09/07/23 19:00 09/07/23 22:39 09/08/23 03:00 Temperature 98.3 F 96.8 F L 97.6 F Pulse Rate Pulse Rate [Pulse Oximeter] 67 65 69 Respiratory Rate 22 16 16 Blood Pressure [Left Arm] 134/63 123/65 133/63 Pulse Oximetry 94 94 96 Oxygen Delivery Method Room Air Room Air Room Air 09/08/23 07:00 09/08/23 07:00 09/08/23 11:00 Temperature 98.3 F 98.3 F Pulse Rate Pulse Rate [Pulse Oximeter] 68 68 66 Respiratory Rate 16 16 16 Blood Pressure [Left Arm] 129/67 146/77 H Pulse Oximetry 95 95 Oxygen Delivery Method Room Air Room Air Assessment and Plan Assessment and plan (1) Rotator cuff arthropathy of right shoulder: Problem details: -POD#1 right reverse shoulder arthroplasty and long head biceps tenodesis -perioperative management including pain management and anticoagulation per Orthopedic surgery -encourage postoperative pulmonary hygiene, incentive spirometery -PT OT consults -plan to discharge home with children today Status: Acute (2) Chronic obstruct airways disease: Problem details: -maintain O2 saturations > 88%, encourage incentive spirometry, pulmonary hygiene, Symbicort Status: Acute (3) Hyperlipidemia: Problem details: -resume statin tomorrow Status: Acute (4) Hypothyroidism: Problem details: -resume levothyroxine tomorrow Status: Acute (5) Hypertension: Problem details: -postoperative pressures appropriate, resume home medications tomorrow Status: Acute Plan - Complete 23 hour perioperative antibiotics. - PT/OT consult for education and assistance. - Social work consult for discharge planning - Prescribed analgesics as needed - DVT prophylaxis: bilateral knee high Doug Hose stockings and SCDs - Anticipation is for discharge to home with family 09/08/23 if the patient remains medically stable, pain is controlled, and they are safe with mobilization.
--- NOTE | 2023-09-08 12:24 | PC.NURSE ---
Discharge: Patient alert and oriented x4. Up to chair for meals, ambulating independently to BR. Tolerating a reg diet. Patient rated pain 5/10 PRN oxy administered w/relief. Patients dressing to right shoulder C/D/I. Patient denies N/V/SOB. Patient's VSS. Patient discharged to home today at 1205 accompanied by Dtr-in-law. IV removed intact. Patients belongings sheet signed, discharge instructions given and signed by patient and patient verbalized understanding of instructions.
== END 2023-09-08 12:05 | disposition home or self-care (01) ==
LOC: OR 06:09 → MEDSURG 06:16
PROVIDERS: PCP Family Medicine; Visit Provider Orthopaedic Surgery Sports Medicine
PROC: 0RRJ0JZ Replacement of Right Shoulder Joint with Synthetic Substitute, Open Approach (ICD-10-PCS; CPT 23472; principal; 2023-09-07 07:30)
DX: M75.101 Unspecified rotator cuff tear or rupture of right shoulder, not specified as traumatic (principal); M75.21 Bicipital tendinitis, right shoulder; G89.18 Other acute postprocedural pain; J44.9 Chronic obstructive pulmonary disease, unspecified; E03.9 Hypothyroidism, unspecified; K21.9 Gastro-esophageal reflux disease without esophagitis; I10 Essential (primary) hypertension; E78.5 Hyperlipidemia, unspecified
CPT/HCPCS: 23472; 23430; 01638; 36415; 64415; 73030; 76942; 82565; 84132; 84295; 84520; 85027; 97110; 97116; 97161; 97165; 97535; 99100; A9270; C1713; C1776; J0330; J0690; J1100; J2250; J2371; J2405; J2704; J2795; J3010; J7120; L3670

== ENCOUNTER 2023-12-07 10:30 | Outpatient (RCR) | payer OTHER, SELFPAY ==
--- NOTE | 2023-08-31 11:14 | OT.OPGNE2 ---
OT Outpatient General/Neuro Eval OT Outpatient General/Neuro Eval* Start: 08/31/23 10:54 Freq: Status: Active Protocol: Document 08/30/23 17:15 [facility] (Rec: 08/31/23 11:13 [facility] Laptop) E-signed By Tamica Carson OT OT Outpatient Evaluation Details Type Type Eval Complexity Low Insurance Information Insurance Information Insurance Information Medicare B Outpatient History/Precautions Current Condition Referring Provider Dr. Arreola Medical Diagnoses M19.011 primary osteoarthritis , right shoulder Treatment Diagnoses pre op Medical/Functional History Medical History Reviewed Yes Prior Level of Function/Mobility Patient lives in a mother in law suite in the basement of son and daughter in law's home . She reports independence in ADls, IADLs and mobility without an AD. She verbalizes some mild memory issues. Social History Type of Dwelling Multilevel Home Number of Floors (Floors) 3 Number of Stairs to Enter (Stairs) 1 Lives With: Children Other greater than 10 steps to living suite in the basement. 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 The surgery is scheduled for . Patient had a previous LTKA in the summer of 2022. She resides with her son and daughter in law in a suite in the basement. She reports independence in ADLs and IADLS . Today she was educated on one handed ADL techniques, sling management, postioning, post op exercises and general information for a TSA. All questions were answered satisfactorily. Occupational Therapy Treatment Plan - OP Goals Goals Within one visit, the patient will educated on.. 1. one handed ADLs, post op exercises, sling management and postiioning. goal met. Certification Certification Statement I Certify That: Therapy Services Provided, Therapy Plan Established, Therapy Plan Reviewed Certification Information Clinic ID # [id number] Initial Certification Date 08/30/23 Recertification Due Date 08/30/23 Provider Signature Shows Agreement With POC & Medical Necessity Physician Comment/Change Comment or Changes Physician NPI Number #
--- NOTE | 2023-09-21 12:30 | PT.OPEX ---
[facility] [place] Outpatient Eval [facility] Start: 09/21/23 11:04 Freq: Status: Active Protocol: Document 09/21/23 11:04 JESUS (Rec: 09/21/23 12:30 [facility] [id number]) E-signed By Dinora Young PT Physical Therapy Outpatient Evaluation Insurance Information Insurance Name Medicare B Insurance Information/Comments KOJO SALEH Medical Diagnosis RIGHT ROTATOR CUFF TEAR S/P rTSA 08/20/23 Treating Diagnosis ADL'S USE OF RIGHT UE REACHING LIFTING Referring MD ZAVALA Subjective Subjective PATIENT REPORTS LONG STANDING SHOULDER PROBLEMS WHERE SHE EVENTUALLY HAD TO RAISE HER RUE WITH HER LUE. SHE REPORTS MINIMAL PAIN AND EDEMA SINCE HER SHOULDER REPLACEMENT AND HAS ADAPTED HER BATHING AND DRESSING TO ACCOMMODATE HER RESTRICTIONS. SHE HAS NOT PERFORMED ANY AROM TO HER ELBOW, FOREARM AND WRIST NOR PENDULUMS TO DATE. Pain Comments 09/17 Date of Last Physician Visit 09/15/23 Date of Next Physician Visit 10/07/23 Date of Surgery (If applicable) 09/07/23 Current Work Status Retired Preferred Name HERNANDEZ Precautions Treatment Precautions/Contraindications 09/21/23: NO AROM, NWB Therapy Limitations/Systems Review Not Limited Objective Other/Pertinent Objective CERVICAL ROM : WFL SHOULDER PROM Flexion: 88 Abduction: 82 Internal Rotation: @45 32 External Rotation: @45 16 JOINT MOBILITY/PALPATION : ANTERIOR SHOULDER TENDER TO PALPATION, INCISION PRISTINE AND ABSENT OF S/S OF INFECTION TX: SUPPORTED ELBOW FLEX/EXT FOREARM SUPINATION/PRONATION WRIST FLEX/EXT PENDULUM FLEX/EXT X 20 PENDULUM ABD/ADD X 20 CERVICAL R/L ROTATION 3 X 10 SEC CERVICAL EXT 3 X 5 SEC CERVICAL FLEX 3 X 10 SEC Assessment Assessment/Impression PATIENT IS A 73 YO FEMALE REFERRED BY DR. ZAVALA TO EVAL AND TX S/O rTSA (09/07/23) . PMHX INCLUDES BUT NOT LIMITED TO HLD, HTN, GERD, ANXIETY AND DEPRESSION, HYPOTHYROIDISM, H/O FACIAL PALSY, OA, H/O LEFT TKA 2022. PATIENT DEMONSTRATES GOOD UNDERSTANDING OF S/S OF INFECTION AND DVT AND REPORTS USING PO PAIN MEDS, TYLENOL AND OCCASIONAL ICE FOR PAIN / EDEMA MGMT. SHE IS WEARING HER SLING APPROPRIATELY AND DEMONSTRATED A LESS CUMBERSOME WAY TO DON/DOFF. SHE LIVES ALONE IN A BASEMENT APARTMENT WITH HER SON/DIL LIVING ABOVE HER. THEY ARE ABLE TO ASSIST NEEDED WITH HER USUAL MEALS CONSISTING OF USE OF THE MICROWAVE. DEMONSTRATION ALONG WITH PATIENT PERFORMANCE OF EA OF HER HEP WITH INSTRUCTION TO MONITOR BODY MECHANICS AND SUPPORT THE ARM WHEN PERFORMING FLEX/EXT IN LIGHT OF HER BICEPS PATHOLOGY. SHE IS APPROPRIATE FOR SKILLED PHYSICAL THERAPY FOR S/P rTSA WITH PATIENT IN AGREEMENT WITH POC AND FREQ. Primary Functional Limitations USE OF RUE REACHING LIFTING ADLS Plan of Care Rehabilitation Potential Good Physical Therapy Goals STG IN 4-6 WEEKS: 1. PATIENT WILL DEMONSTRATE GOOD MGMT OF HIS PAIN AND EDEMA WITH REPORTED PAIN </3/ 10 DURING HIS HOME PROGRAM AND WITH THE PROGRESSION OF HIS PHYSICAL THERAPY. 2. PATIENT WILL RETURN TO INDEPENDENCE WITH ADL'S, RETURN TO DRIVING, AND MAINTAIN HIS PRECAUTIONS/ RESTRICTIONS 3. PATIENT WILL DEMONSTRATE PROM TO WFL TO PREPARE FOR RETURN TO FUNCTIONAL USE OF RIGHT UE; LTG WITHIN 10-12 WEEKS: 1. PATIENT WILL DEMONSTRATE AROM OF RIGHT SHOULDER TO WFL TO RETURN TO FULL FUNCTIONAL FOR ADL'S, IADL'S AND PEER CENTERED ACTIVITIES. 2. PATIENT WILL DEMONSTRATE FUNCTIONAL STRENGTH TO RETURN TO REACHING OVERHEAD, ANTERIORLY AND OUT TO SIDE NEEDED DURING PATIENT CENTERED ACTIVITIES. 3. PATIENT WILL DEMONSTRATE INDEPENDENCE WITH HIS HEP TO PROGRESS TWD THE ABOVE MENTIONED GOALS, CONTINUED MGMT OF SYMPTOMS, AND ONGOING IMPROVEMENT WITH ROM, STRENGTH AND FUNCTION FOR A FULL RETURN TO ALL ACTIVITIES Coordination/Communication With Referral Source Treatment Plan/Direct Interventions Ice/Cold/Vasopneumatic,Joint Mobilization,Manual Therapy, Neuromuscular Re-ed,Self-Care/ Home Management,Therapeutic Activities,Therapeutic Exercises Frequency/Duration [id number] Patient Will Be Discharged From Therapy Completion of LTG(s), Independently Progressing Evaluation Billing Untimed Code Treatment Minutes 15 PT Eval No Charge No Complexity Moderate Certification Information Initial Certification Date 09/21/23 Ending Certification Date 12/19/23 Provider Signature Shows Agreement With POC & Medical Necessity Physician Signature & Date Requested Please Sign/Date Here Physician Comment/Change : Physician NPI Number #
== END 2024-01-04 15:06 | disposition home or self-care (01) ==
PROVIDERS: PCP Family Medicine; Visit Provider Orthopaedic Surgery Sports Medicine
DX: M19.011 Primary osteoarthritis, right shoulder (principal); Z96.611 Presence of right artificial shoulder joint; Z51.89 Encounter for other specified aftercare; M75.101 Unspecified rotator cuff tear or rupture of right shoulder, not specified as traumatic
CPT/HCPCS: 97110; 97140; 97162; 97165; 97535

== ENCOUNTER 2024-03-07 11:10 | Outpatient (CLI) | payer OTHER, SELFPAY ==
--- OUTSIDE RECORDS SUMMARY | 2024-03-07 11:14 | XMS_ITS | Clinical Summary ---
Author Organization [facility] Address [place], [place] [address] Care Team Providers Care Electrician Research Name Role Phone Yocasta Reynolds MD Primary Care Provider [phone] [facility], [place] Unavailable [phone] Allergies No known active allergies Medications Medication Sig Dispensed Refills Start Date End Date Status acetaminophen (TYLENOL EXTRA STRGTH) 500 mg tablet Take 1,000 mg by mouth every 6 hours if needed for Pain. Active alendronate (FOSAMAX) 70 mg tabletIndications:A ge-related osteoporosis without current pathological fracture Take 1 Tablet (70 mg) by mouth once a week in the morning. Take on empty stomach with full glass of water. Do not lie down for 1 hr. 12 Tablet 10/19/2023 Active atorvastatin (LIPITOR) 40 mg tabletIndications:H yperlipidemia, unspecified hyperlipidemia type Take 1 Tablet (40 mg) by mouth once daily with evening meal. 100 Tablet 10/19/2023 Active docusate (COLACE) 100 mg capsuleIndications: Constipation, acute Take 1 Capsule (100 mg) by mouth two times daily. 200 Capsule 10/19/2023 Active losartan-hydrochlor othiazide (HYZAAR) 100-25 mg tabletIndications:H TN (hypertension) Take 1 Tablet by mouth once daily. 100 Tablet 10/19/2023 Active pantoprazole (PROTONIX) 40 mg delayed-release tabletIndications:G astroesophageal reflux disease, unspecified whether esophagitis present Take 1 Tablet (40 mg) by mouth two times daily before meals. 200 Tablet 10/19/2023 Active sertraline (ZOLOFT) 50 mg tabletIndications:D epression, unspecified depression type,Anxiety Take 1 Tablet (50 mg) by mouth every morning. 100 Tablet 10/19/2023 Active triamcinolone (ARISTOCORT; KENALOG) 0.1 % creamIndications:Al lergic contact dermatitis due to metals Apply topically to affected area(s) three times daily. 45 g 1 10/19/2023 Active budesonide-formoter oL (Symbicort) 160-4.5 mcg/actuation (160-4.5 mcg each actuation) inhalerIndications: Chronic obstructive pulmonary disease, unspecified COPD type (HC) INHALE 2 PUFFS BY MOUTH TWO TIMES DAILY. 3 Each 1 11/04/2023 Active levothyroxine (SYNTHROID) 75 mcg tabletIndications:A cquired hypothyroidism Take 1 Tablet (75 mcg) by mouth before breakfast. 100 Tablet 3 02/23/2024 Active levothyroxine (SYNTHROID) 75 mcg tabletIndications:A cquired hypothyroidism Take 1 Tablet (75 mcg) by mouth before breakfast. 100 Tablet 3 04/14/2023 4 Discontinue d(Reorder (E-cancel not sent)) Active Problems Problem Noted Date Diagnosed Date Primary osteoarthritis of left knee 05/29/2022 Overview: PRevious cortisone and hyaluronic acid injections in [place]. May 2022: Dr. Pacheco did left knee [...] diet and exercise. Return visit with Primary Steel Erecting Pusher in 2 years sooner if needed. . Last Assessment & Plan: Target BP is 130/80. Blood pressure is adequately controlled. Will plan to continue medical therapy. Encourage low sodium diet and exercise. Return visit with Primary Steel Erecting Pusher in 2 years sooner if needed. . Resolved Problems Problem Noted Date Diagnosed Date Resolved Date Takotsubo cardiomyopathy 08/07/2018 Overview: Two episodes [address] [facility]. Second in [facility] 08/06/2018 normal coronaries EF 25%. [...] would be done. Return visit with Primary Steel Erecting Pusher in 2 years. Two episodes takotsubo. Two episodes [address] [facility]. Second in [facility] 08/06/2018 normal coronaries EF 25%. Echo September 2018 returned to normal. Both episodes induced by severe coughing spell with her chronic obstructive pulmonary disease no other cardiac symptoms. Last Assessment & Plan: Encounters Date Type Department Care Team Description 02/23/2024 9:10 AM CDT Office Visit [facility] [address] [place] [address] Yocasta Reynolds MD Fatigue 02/23/2024 Travel 02/20/2024 12:45 PM CDT Nurse/Clinic Staff Only [facility] [address] [place] [address] Blood Pressure (BLOOD PRESSURE CHECK) 02/20/2024 Travel 12/28/2023 2:45 PM CDT Office Visit [facility] [address] [place] [address] Yocasta Reynolds MD Jaw Pain (swelling, xweday, right side, unable to chew); Derm Problem (itchy scalp and arms, tuesday ) 12/28/2023 Travel from Last 3 Months Immunizations Name Administration Dates Next Due COVID-19 Vaccine Spikevax (M oderna 50mcg/0.5mL) 12YO+ [id number] Formula PF 10/19/2023 COVID-19 vaccine (Pfizer-Bio NTech 30mcg/0.3mL) 12YO+ BIVALENT PF, MDV 05/21/2022 COVID-19 vaccine (Pfizer-Bio NTech 30mcg/0.3mL) PF, MDV 07/13/2021,11/28/2020,11/05/2020 Influenza, High-dose Inactivated 05/14/2020,07/08,07/17/2018 Influenza, High-dose Quadriv alent Inactivated 05/08/2021 Influenza, Inactivated AIIV4 (Age 65+ Years) Preserv Free 04/27/2023,04/21/2022 Pneumococcal Poly,23-Valent (Pneumovax) 02/21/20 20 Pneumococcal conj 13-Valent (Prevnar 13) 018 Tdap [...] Answer Date Recorded PHQ-2 TOTAL SCORE 0 10/19/2023 Social Connections Answer Date Recorded Frequency of Communication with Friends and Fami ly 0 10/19/2023 Financial Resource Strain Answer Date R ecorded Difficulty of Paying Living Expenses 3 10/19/2023 Difficulty of Paying Living Expenses Not on file 10/19/2023 Food Insecurity Answer Date Recorded Worried About Running Out of Food in the Last Ye ar 1 10/19/2023 Transportation Needs Answer Date Record ed Lack of Transportation (Medical) 1 10/19/2023 Housing Stability Answer Date Recorded Unable to Pay for Housing in the Last Year 1 10/19/2023 Sex and Gender Information Value Date Recorded Sex Assigned at Not on file Gender Identity Not on file Sexual Orientation Not on file Obstetrics History Last Filed Vital Signs Vital Sign Reading Time Taken Comments Blood Pressure 136/82 02/23/2024 9:06 AM CDT Pulse 88 02/23/2024 9:06 AM CDT Temperature 36.3 ??C (97.3 ??F) 01/20/2023 12:59 PM C DT Respiratory Rate 16 01/20/2023 12:59 PM CDT Oxygen Saturation 97% 02/23/2024 9:06 AM CDT Inhaled Oxygen Concentration - - Weight 67.1 kg (148 lb) 02/23/2024 9:06 AM CDT Height 148.4 cm (4' 10.43) 10/19/2023 12:49 PM CDT Body Mass Index 30.48 10/19/2023 12:49 PM CDT Plan of Treatment Upcoming Encounters Date Type Department Care Team (Late st Contact Info) Description 04/05/2024 11:15 AM CDT Orders Only [facility] [address] [place] [address] Lab, [facility] Maintenance Due Date Last Done Comments COVID-19 vaccine series ( season) 2024 10/19/2023, 05/21/2022, 07/13/2021, Additional history exists Influenza for age 65+ 04/08/2024 04/27/2023 , 04/21/2022, 05/08/2021, Additional history exists Mammogram for age 45-75 08/17/2024 08/17/19, 06/10/2022, 06/24/2021 (Verified in Care Everywhere or Patient Record) BMI (ht and wt on same day) for age 18+ 10/18/2024 10/19/2023, 08/10/2023, 12/17/2022, Additional history exists Depression screening for age 12+ 10/18/2024 10/19/2023, 12/03/2022, 12/01/2022, Additional history exists Medicare Wellness for age 65+ 10/19/2024 10/19/2023, 05/21/2022 Colonoscopy through age 75 06/25/202506/25 (Verified in Care Everywhere or Patient Record) Lipids for age 45-75 10/18/2028 10/19/2023, 05/21/2022, 05/14/2021 (Verified in Care Everywhere or [...] series for age 50+ Completed 01/27/2023, 11/23/2022 Procedures Procedure Name Priority Date/Time Associated Diagnosis Comments LIPID PANEL W REFLEX MEASURED LDL Routine 10/19/2023 1:52 PM CDT Hyperlipidemia, unspecified hyperlipidemia type XR MAMMO JORGE BILAT SCREEN Routine 08/17/2023 2:10 PM RELAY WORKER Visit for screening mammogram XR DXA BONE DENSITY 2 SITES AXIAL Routine 06/10/2022 10:38 AM CDT Age-related osteoporosis without current pathological fracture from Last 3 Months or Most Recently Relevant to Health Maintenance Results * (ABNORMAL) LIPID PANEL W REFLEX MEASURED LDL (10/19/2023 1:52 PM CDT) CHOLESTEROL,TOTAL 165 100 - 199 mg/dL 10/19/2023 10:10 PM CDT [facility] Comment: Cholesterol, Total Reference Ranges Desirable <200 mg/dL Borderline 200-239 mg/dL High >=240 mg/dL TRIGLYCERIDES 185(H) <150 mg/dL 10/19/2023 10:10 PM CDT [facility] HDL CHOLESTEROL 51 >40 mg/dL 10:10 PM CDT [facility] NON-HDL CHOLESTEROL 114 <145 mg/dl 10/19/2023 10:10 PM CDT [facility] CHOL/HDL RATIO 3.24 <4.50 10/19/2023 10:10 PM CDT [facility] LDL CHOLESTEROL 77 <=130 mg/dL 10/19/2023 10:10 PM CDT [facility] VLDL CHOLESTEROL 37(H) <=30 mg/dL 10/19/2023 10:10 PM CDT [facility] PROVIDER ORDERED STATUS RANDOM 10/19/2023 10:10 PM CDT [facility] Blood BLOOD SPECIMEN / Unknown Butterfly / Unknown 10/19/2023 1:52 PM CDT 10/19/2023 1:53 PM CDT Yocasta Reynolds MD CHEMISTRY [facility] [address] [place] [address], * XR MAMMO JORGE BILAT SCREEN (08/17/2023 2:10 PM RELAY WORKER) Anatomical Region Laterality Modality BREASTS, Breast Left, Breast Right Bilateral Mammography Impressions 08/18/2023 2:19 PM RELAY WORKER ??There is no radiographic evidence for malignancy. ??Recommend annual mammograms. MAMMOGRAM ASSESSMENT: ??ACR 2 Benign PATIENTS: You will also receive a letter with your examination results in an easy to read format. ??If you have questions about your results, please contact your referring provider. Narrative 08/18/2023 2:19 PM RELAY WORKER For Patients: As a result of the Century Cures Act, medical imaging exams and procedure reports are released immediately into your electronic medical record. You may view this report before your referring provider. If you have questions, please contact your health care provider. XR MAMMO JORGE BILAT SCREEN [[id number]] CLINICAL HISTORY: ??This is an asymptomatic 73 y.o. patient. INDICATION FOR EXAM: Mammogram Screening. TECHNIQUE: CC & MLO views were obtained. ??This study was evaluated with the assistance of Computer-Aided Detection. Breast Tomosynthesis was used in interpretation. COMPARISON FILMS: Yes 06/10/22 [facility] ?? FINDINGS: ??The breasts have scattered areas of fibroglandular density. ??No suspicious masses or microcalcifications. ??Post biopsy changes of left breast. Yocasta Reynolds MD MAMMO * (ABNORMAL) XR DXA BONE DENSITY 2 SITES AXIAL (06/10/2022 10:38 AM CDT) Anatomical Region Laterality Modality Spine, HIPS, HIPL, HIPR Other Impressions 06/11/2022 4:16 PM CDT Osteoporosis. RECOMMENDATIONS: The National Osteoporosis Foundation recommends pharmacologic treatment for patients with T-scores of -2.5 or less, patients with prior history of fragility fractures, or patients with 10-year probability of greater than 3% at hips or greater than 20% of suffering major osteoporotic fractures. Recommend continued optimization of calcium and vitamin D intake through dietary means and/or supplementation and regular exercise. Consider pharmacologic therapy for osteoporosis. Follow-up bone density reading in 2 years if therapy initiated to assess therapeutic efficacy. Missy Barksdale PA-C [facility] 06/11/2022 Narrative 06/11/2022 4:16 PM CDT For Patients: Results are automatically released to your [facility] ([employer]) account once available, in compliance with federal regulations. This means that you may see your results before your provider has had a chance to review them. Please allow 2-3 business days for your provider to comment on the results. XR DXA Bone Mineral Density (BMD) EXAM LOCATION: [address] [address] PATIENT NAME: Lisbeth Weston DATE OF : 1950 EXAM DATE: 06/10/2022 REQUESTING PROVIDER: Yocasta Reynolds MD GENDER AT : female HEIGHT: 4' 10.27 (04/21/2022) WEIGHT: ??132 lb 9.6 oz (05/25/2022) MENOPAUSAL STATUS: Postmenopausal RACE/ETHNICITY: White RISK FACTORS: White Race CURRENT MEDICATION FOR BONE LOSS: NONE INDICATION: Age-related osteoporosis without current pathological fracture COMPARISON DATE(S): None DXA scans are compared to prior studies for a patient only when the two (or more) studies were performed on the same scanner. It is not possible to compare data generated on one scanner to data from another because there are not standards in DXA equipment. This applies even if the two scanners are made by the same control cabinet assembler. PROCEDURE: Dual-energy x-ray absorptiometry performed with routine technique. Reporting is completed in the form of a T-score. The T-score represents the standard deviation from peak bone mass based on young healthy adult. A Z-score is used for diagnosis in premenopausal women, and for men under the age of 50. FINDINGS: RESULT LUMBAR SPINE L1 - L3 ??BMD: 0.805 g/cm2 T-Score: - 3.4 Z-Score: - 1.2 Change from prior: ??None RESULTS FEMUR Left femoral neck BMD: 0.867 g/cm2 T-Score: - 1.2 Z-Score: + 0.6 Change from prior: ??None Right femoral neck BMD: 0.918 g/cm2 T-Score: - 0.9 Z-Score: + 1.0 Change from prior: ??None Left hip BMD: 0.880 g/cm2 T-Score: - 1.0 Z-Score: + 0.6 Change from prior: ??None Right hip BMD: 0.894 g/cm2 T-Score: - 0.9 Z-Score: + 0.7 Change from prior: ??None WHO criteria: Normal: T-score at or above -1 SD Osteopenia: T-score between -1.1 and -2.4 SD Osteoporosis: T-score at or below -2.5 SD FRAX RISK CALCULATION (USED FOR OSTEOPENIA ONLY): 10-year probability of major osteoporotic fracture: 9.5%. 10-year probability of hip fracture: 1.2%. Yocasta Reynolds MD DEXA from Last 3 Months or Most Recently Relevant to Health Maintenance Care Teams Electrician Research Relationship Specialty Start Date End Date Yocasta Reynolds MD [facility] [address] [place] [address] PCP - General Family Practice 04/20/[address] [address] 12/28/22
--- NOTE | 2024-03-07 13:00 | CRLHL7_ITS ---
For Patients: As a result of the Century Cures Act, medical imaging exams and procedure reports are released immediately into your electronic medical record. You may view this report before your referring provider. If you have questions, please contact your health care provider. INDICATION: Low back pain. TECHNIQUE: Noncontrast sagittal and axial T1, T2, and sagittal STIR sequences are provided. No comparisons. FINDINGS: Grade 1 anterolisthesis of L5 on S1 due to chronic bilateral L5 spondylolysis. The overall stature, alignment and intrinsic marrow signal within the remainder of the lumbar spine is within normal limits. Conus is normal. L1-2: Unremarkable. L2-3: Trivial posterior disc bulge results in no central canal or foraminal narrowing. L3-4: Minor disc bulge results in no central canal or foraminal narrowing. L4-5: Mild broad-based posterior disc bulge and facet arthropathy results in moderate right and [id number] left foraminal narrowing. Mild central canal narrowing. L5-S1: Moderate unroofing of the intervertebral disc space with grade 1 anterolisthesis results in profound bilateral foraminal narrowing and compression of the exiting L5 nerve roots. Associated facet arthropathy and ligamentum flavum laxity results in severe central canal narrowing. IMPRESSION: 1. Grade 1 anterolisthesis of L5 on S1 with unroofing of the intervertebral disc space and facet arthropathy resulting in profound bilateral foraminal narrowing with severe central canal narrowing. 2. Moderate right and [id number] left foraminal narrowing with mild central canal narrowing at L4-5. Dictated by Malachi Martinez MD @ 03/10/2024 8:14:12 AM (Electronically Signed)
== END 2024-03-07 11:11 | disposition home or self-care (01) ==
LOC: MRI 11:11
PROVIDERS: PCP Family Medicine; Visit Provider Orthopaedic Surgery Sports Medicine
DX: M54.50 Low back pain, unspecified (principal); M51.26 Other intervertebral disc displacement, lumbar region; M43.17 Spondylolisthesis, lumbosacral region; M54.16 Radiculopathy, lumbar region
CPT/HCPCS: 72148

== ENCOUNTER 2024-07-23 10:30 | Outpatient (RCR) | payer OTHER, SELFPAY | END 2024-08-21 13:53 | disposition home or self-care (01) | PROVIDERS: PCP Family Medicine; Visit Provider Orthopaedic Surgery Orthopaedic Surgery of the Spine | DX: M54.50 Low back pain, unspecified (principal); M48.062 Spinal stenosis, lumbar region with neurogenic claudication; Z51.89 Encounter for other specified aftercare | CPT/HCPCS: 97110; 97140; 97162 ==